=== PATIENT | female | born 1995 | race Caucasian/White ===

== ENCOUNTER 2017-03-21 05:52 | Inpatient (IN) | payer OTHER ==
[~2017-03-21] VITALS: Ht 152.4 cm; Wt 66.7 kg
[2017-03-21] MEDS ORDERED: PRENATAL TABLE1 EAC1 PO (07:13)
== END 2017-03-23 18:42 | disposition home or self-care (01) | DRG 775 ==
LOC: LDR 05:52 → OB/GYN 05:52
PROC: 10E0XZZ Delivery of Products of Conception, External Approach (ICD-10-PCS; principal; 2017-03-21)
PROC: 0HQ9XZZ Repair Perineum Skin, External Approach (ICD-10-PCS; 2017-03-21)
PROC: 4A1HXCZ Monitoring of Products of Conception, Cardiac Rate, External Approach (ICD-10-PCS; 2017-03-21)
DX: O70.0 First degree perineal laceration during delivery (principal); Z37.0 Single live birth; Z3A.38 38 weeks gestation of pregnancy

== ENCOUNTER 2018-12-20 18:24 | Emergency (ER) | payer OTHER ==
[~2018-12-20] VITALS: Ht 152.4 cm; Wt 63.5 kg
[~2018-12-20 18:24] MED LIST: PRENATAL TABLE1 EAC1 PO
[2018-12-20] MEDS ORDERED: SYNTHROID50 MCG (18:35)
== END 2018-12-20 21:14 | disposition home or self-care (01) ==
LOC: ER 18:24
DX: J11.1 Influenza due to unidentified influenza virus with other respiratory manifestations (principal)

== ENCOUNTER 2019-11-07 13:40 | Emergency (ER) | payer OTHER ==
[~2019-11-07] VITALS: Ht 152.4 cm; Wt 63.0 kg
[~2019-11-07 13:40] MED LIST changes: +SYNTHROID50 MCG
[2019-11-07] MEDS ORDERED: NORFLEX100MG PO (16:47)
== END 2019-11-07 17:17 | disposition home or self-care (01) ==
LOC: ER 13:40
DX: B34.9 Viral infection, unspecified (principal); R50.9 Fever, unspecified; Z03.818 Encounter for observation for suspected exposure to other biological agents ruled out

== ENCOUNTER 2020-06-18 22:10 | Emergency (ER) | payer OTHER ==
[~2020-06-18] VITALS: Ht 152.4 cm; Wt 59.9 kg
[~2020-06-18 22:10] MED LIST changes: +NORFLEX100MG PO
[2020-06-19] MEDS ORDERED: KETO10TA2 PO (03:10)
== END 2020-06-19 03:17 | disposition home or self-care (01) ==
LOC: ER 22:10
DX: N83.02 Follicular cyst of left ovary (principal); N83.01 Follicular cyst of right ovary

== ENCOUNTER 2022-06-11 16:12 | Emergency (ER) | payer OTHER ==
[~2022-06-11] VITALS: Ht 152.4 cm; Wt 52.2 kg
[~2022-06-11 16:12] MED LIST changes: +KETO10TA2 PO
== END 2022-06-11 18:22 | disposition home or self-care (01) ==
LOC: ER 16:12
DX: S60.221A Contusion of right hand, initial encounter (principal); W18.39XA Other fall on same level, initial encounter; Y93.9 Activity, unspecified; Y92.018 Other place in single-family (private) house as the place of occurrence of the external cause; Y99.9 Unspecified external cause status; E03.9 Hypothyroidism, unspecified